=== PATIENT | female | born 1980 | race Asian ===

== ENCOUNTER 2017-08-03 14:36 | Emergency (ER) | payer OTHER ==
[2017-08-03 14:49] VITALS: BP 102/70
== END 2017-08-03 18:40 | disposition left against medical advice (07) ==
LOC: ED 14:36
DX: Z53.21 Procedure and treatment not carried out due to patient leaving prior to being seen by health care provider (principal)
CPT/HCPCS: 93005

== ENCOUNTER 2020-01-05 07:00 | Outpatient (CLI) | payer OTHER ==
[2020-01-06 18:54] LABS: CANDIDA GROUP DNA NEGATIVE (NEGATIVE); CANDIDA KRUSEI DNA NEGATIVE (NEGATIVE); TRICHOMONAS VAGINALIS DNA NEGATIVE (NEGATIVE)
[2020-01-06 19:01] LABS: TRICHOMONAS VAGINALIS DNA NEGATIVE (NEGATIVE)
== END 2020-01-05 23:59 | disposition home or self-care (01) ==
LOC: LAB.R 07:00
PROVIDERS: ATTEND Obstetrics & Gynecology
DX: Z11.3 Encounter for screening for infections with a predominantly sexual mode of transmission (principal); N89.8 Other specified noninflammatory disorders of vagina
CPT/HCPCS: 87491; 87591; 87661; 87801

== ENCOUNTER 2020-04-05 13:46 | Outpatient (CLI) | payer OTHER ==
--- NOTE | 2020-04-06 15:07 | Mammography Report ---
BILATERAL DIGITAL SCREENING MAMMOGRAM 3D/2D: 04/05/2020 CLINICAL: Baseline exam. Baseline exam. No prior exams were available for comparison. The tissue of both breasts is heterogen eously dense. This may lower the sensitivity of mammography. There is possible architectural distortion in the right breast middle depth central to the nipple see n on the mediolateral oblique view only. No other significant masses, calcifications, or other findings are seen in either breast. IMPRESSION: INCOMPLETE: NEEDS ADDITIONAL IMAGING EVALUATION Possible architectural distortion in the right breast is indeterminate. Additional views with possible ultrasound are recommended. This exam was interpreted at Station ID: [id number]. NOTE: For mammograms, a report in lay terms will be sent to the patient. Approximately 15% of breast malignancies will not be visualized mammographically. In the management of a palpable breast mass, a negative mammogram must not discourage biopsy of a clinically suspicious lesion. Electronically Signed By: Rex Dee M.D. slc/:04/06/2020 12:37:02 ACR BI-RADS Category 0: Incomplete 3340F PARENCHYMAL PATTERN: (D) - The breast(s) demonstrate(s) heterogeneously dense fibroglandular fidel walton. BI-RADS CATEGORY: (0) - 0 Mammo and [place] [id number] Immediate follow-up LATERALITY: (B)
== END 2020-04-05 13:47 | disposition home or self-care (01) ==
LOC: DI 13:46
PROVIDERS: ATTEND Obstetrics & Gynecology
DX: Z12.31 Encounter for screening mammogram for malignant neoplasm of breast (principal); R92.8 Other abnormal and inconclusive findings on diagnostic imaging of breast
CPT/HCPCS: 77063; 77067

== ENCOUNTER 2020-06-30 10:16 | Outpatient (CLI) | payer OTHER ==
--- NOTE | 2020-07-01 09:47 | Mammography Report ---
UNILATERAL RIGHT DIGITAL DIAGNOSTIC MAMMOGRAM 3D/2D: 06/30/2020 CLINICAL: Patient returns today to evaluate an architectural distortion in the right breast. Comparison is made to exam dated: 04/05/2020 mammogram - [facility]. The tissue o f right breast is heterogeneously dense. This may lower the sensitivity of mammography. The possible architectural distortion in the right breast middle depth central to the nipple seen on the mediolateral oblique view only is not convincingly reproduced and presumably represented superimp osed breast tissue. This cannot be confirmed with additional views. No other significant masses or calcifications are seen in the breast. IMPRESSION: INCOMPLETE: NEEDS ADDITIONAL IMAGING EVALUATION An ultrasound is recommended to confirm resolution of the possible architectural distortion in the ri ght breast middle depth central to the nipple seen on the mediolateral oblique view only. This was p erformed immediately following this exam. This exam was interpreted at Station ID: [id number]. NOTE: For mammograms, a report in lay terms will be sent to the patient. Approximately 15% of breast malignancies will not be visualized mammographically. In the management of a palpable breast mass, a negative mammogram must not discourage biopsy of a clinically suspicious lesion. Electronically Signed By: Ofelia miranda/:06/30/2020 11:01:04 ACR BI-RADS Category 0: Incomplete 3340F PARENCHYMAL PATTERN: (D) - The breast(s) demonstrate(s) heterogeneously dense fibroglandular parjose alejandroy anton. BI-RADS CATEGORY: (0) - 0 Ultrasound [id number] Immediate follow-up LATERALITY: (B)
--- NOTE | 2020-07-01 09:47 | Ultrasound Report ---
LIMITED ULTRASOUND OF RIGHT BREAST: 06/30/2020 CLINICAL: Patient returns today to evaluate an asymmetry in the right breast. Comparison is made to exams dated: 06/30/2020 mammogram and 04/05/2020 mammogram - [facility]. Ultrasound of the right breast 3 o'clock and 9 o'clock regions was performed. The tissue is heterogeneous. No finding to correspond to the patient's resolved screening mammographic abnormality of possible arc hitectural distortion in the 9:00 or 3:00 position. IMPRESSION: PROBABLY BENIGN There is no sonographic correlate to the patient's resolved screening mammography abnormality. A follow-up right mammogram in 6 months is recommended to demonstrate stability. Findings and recommendations were conveyed to the patient at time of exam. This exam was interpreted at Station ID: [id number]. Electronically Signed By: Ofelia miranda/:06/30/2020 11:39:38 Ultrasound BI-RADS: 3 Probably benign BI-RADS CATEGORY: (3) - 3 Mammogram [id number] 6 month follow-up LATERALITY: (R)
== END 2020-06-30 10:17 | disposition home or self-care (01) ==
LOC: DI 10:16
PROVIDERS: ATTEND Obstetrics & Gynecology
DX: R92.8 Other abnormal and inconclusive findings on diagnostic imaging of breast (principal)